=== PATIENT | male | born 1980 | race Caucasian/White ===

== ENCOUNTER 2016-07-09 20:13 | Emergency (ER) | payer SELFPAY ==
[~2016-07-09] VITALS: Ht 175.3 cm; Wt 63.0 kg
[2016-07-09 20:14] VITALS: BP 145/87
== END 2016-07-10 05:30 | disposition left against medical advice (07) ==
LOC: ER 20:14
DX: F10.120 Alcohol abuse with intoxication, uncomplicated (principal); R10.9 Unspecified abdominal pain; F17.200 Nicotine dependence, unspecified, uncomplicated; F12.10 Cannabis abuse, uncomplicated

== ENCOUNTER 2016-07-24 00:32 | Emergency (ER) | payer MEDICAID ==
[~2016-07-24] VITALS: Ht 172.7 cm; Wt 72.0 kg
[2016-07-24 07:30] VITALS: BP 141/77
[2016-07-24 08:24] LABS: *AMPHETAMINES SCREEN URINE PRESUMTIVE POSITIVE (NEGATIVE); *BARBITURATES SCREEN URINE NEGATIVE (NEGATIVE); *BENZODIAZEPINES SCREEN URINE PRESUMTIVE POSITIVE (NEGATIVE); *COCAINE SCREEN URINE NEGATIVE (NEGATIVE); CANNABINOID URINE SCREEN PRESUMTIVE POSITIVE (NEGATIVE); ECSTASY MDMA SCREEN URINE NEGATIVE (NEGATIVE); METHADONE URINE SCREEN NEGATIVE (NEGATIVE); OPIATES URINE SCREEN NEGATIVE (NEGATIVE); PHENCYCLIDINE URINE SCREEN NEGATIVE (NEGATIVE)
== END 2016-07-24 08:28 | disposition left against medical advice (07) ==
LOC: ER 00:32
DX: F10.229 Alcohol dependence with intoxication, unspecified (principal); K70.30 Alcoholic cirrhosis of liver without ascites; R03.0 Elevated blood-pressure reading, without diagnosis of hypertension; G40.909 Epilepsy, unspecified, not intractable, without status epilepticus; F12.10 Cannabis abuse, uncomplicated; Z86.11 Personal history of tuberculosis; Z53.21 Procedure and treatment not carried out due to patient leaving prior to being seen by health care provider
CPT/HCPCS: 36415; 80305; G0482

== ENCOUNTER 2016-10-17 14:23 | Emergency (ER) | payer MEDICAID ==
[~2016-10-17] VITALS: Ht 175.3 cm; Wt 70.0 kg
[2016-10-17 14:24] VITALS: BP 125/78
[2016-10-17] MEDS ORDERED: PHEN100C4 PO (14:25)
== END 2016-10-17 14:56 | disposition left against medical advice (07) ==
LOC: ER 14:31
DX: G40.909 Epilepsy, unspecified, not intractable, without status epilepticus (principal); F10.20 Alcohol dependence, uncomplicated; Z53.21 Procedure and treatment not carried out due to patient leaving prior to being seen by health care provider

== ENCOUNTER 2016-10-17 22:13 | Emergency (ER) | payer MEDICAID ==
[~2016-10-17] VITALS: Ht 177.8 cm; Wt 82.0 kg
[~2016-10-17 22:13] MED LIST: PHEN100C4 PO
[2016-10-18] MEDS ORDERED: DICYCLOMINE 10 MG/5 ML ORAL SYR PO STA (00:10)
[2016-10-18] MEDS ORDERED: ONDANSETRON 4MG ODT PO STA (00:10)
[2016-10-18] MEDS ORDERED: MAGNESIUM/ALUMINUM HYDROXIDE/SIMETHICONE 30ML UDC PO STA (00:10)
[2016-10-18] MEDS ORDERED: VISCOUS LIDOCAINE 2% 15 ML UDC PO STA (00:10)
[2016-10-18 02:05] VITALS: BP 115/65
== END 2016-10-18 02:05 | disposition home or self-care (01) ==
LOC: ER 22:51
DX: R10.32 Left lower quadrant pain (principal); H10.9 Unspecified conjunctivitis; R11.0 Nausea; F10.10 Alcohol abuse, uncomplicated; Y90.8 Blood alcohol level of 240 mg/100 ml or more; G40.909 Epilepsy, unspecified, not intractable, without status epilepticus; F17.210 Nicotine dependence, cigarettes, uncomplicated; F12.90 Cannabis use, unspecified, uncomplicated; S60.512A Abrasion of left hand, initial encounter; X58.XXXA Exposure to other specified factors, initial encounter; Y93.9 Activity, unspecified; Y92.9 Unspecified place or not applicable
CPT/HCPCS: 99284; Q0162

== ENCOUNTER 2016-12-31 09:48 | Emergency (ER) | payer MEDICAID ==
[~2016-12-31] VITALS: Ht 167.6 cm; Wt 63.0 kg
[2016-12-31 11:00] VITALS: BP 121/78
== END 2016-12-31 13:44 | disposition left against medical advice (07) ==
LOC: ER 09:55
DX: Z53.21 Procedure and treatment not carried out due to patient leaving prior to being seen by health care provider (principal)

== ENCOUNTER 2017-01-16 21:58 | Emergency (ER) | payer MEDICAID ==
[~2017-01-16] VITALS: Ht 180.3 cm; Wt 53.0 kg
[2017-01-16 22:10] VITALS: BP 117/68
== END 2017-01-17 01:45 | disposition left against medical advice (07) ==
LOC: ER 21:58
DX: F10.239 Alcohol dependence with withdrawal, unspecified (principal); Z53.21 Procedure and treatment not carried out due to patient leaving prior to being seen by health care provider
CPT/HCPCS: C1893

== ENCOUNTER 2017-04-28 21:44 | Emergency (ER) | payer MEDICAID ==
[~2017-04-28] VITALS: Ht 175.3 cm; Wt 64.0 kg
[2017-04-29] MEDS ORDERED: VISCOUS LIDOCAINE 2% 15 ML UDC PO STA (06:16)
[2017-04-29] MEDS ORDERED: ONDANSETRON 4MG ODT PO STA (06:16)
[2017-04-29] MEDS ORDERED: DICYCLOMINE 10 MG/5 ML ORAL SYR PO STA (06:16)
[2017-04-29] MEDS ORDERED: MAGNESIUM/ALUMINUM HYDROXIDE/SIMETHICONE 30ML UDC PO STA (06:16)
[2017-04-29 06:40] LABS: BASOPHILS % 1.1 % (0.0-2.0); HEMATOCRIT. 28.4 % (42.0-52.0); HEMOGLOBIN. 8.6 g/dL (14.0-18.0); LYMPHOCYTES % 40.5 % (20.0-50.0); MEAN CORPUSCULAR HEMOGLOBIN 20.1 pg (28.0-32.0); MEAN CORPUSCULAR VOLUME 66.1 fL (80.0-94.0); MONOCYTES % 14.1 % (2.0-8.0); NEUTROPHILS % 37.3 % (40.0-76.0); PLATELET 201 x1000/uL (130-400); RED CELL DISTRIBUTION WIDTH 21.3 % (11.6-14.6)
[2017-04-29 06:50] LABS: CHLORIDE 107 mEq/L (98-107)
[2017-04-29 06:52] LABS: PROTHROMBIN TIME 10.4 sec (9.4-11.6)
[2017-04-29 07:07] LABS: CARBON DIOXIDE 27 mEq/L (21-32); ETHANOL BLOOD 276 mg/dL
[2017-04-29 07:21] VITALS: BP 134/88
[2017-04-29 10:56] LABS: PLATELET ESTIMATE NORMAL
== END 2017-04-29 08:06 | disposition home or self-care (01) ==
LOC: ER 21:58
DX: K29.20 Alcoholic gastritis without bleeding (principal); D72.819 Decreased white blood cell count, unspecified; F10.129 Alcohol abuse with intoxication, unspecified; F17.210 Nicotine dependence, cigarettes, uncomplicated; Z59.0 Homelessness
CPT/HCPCS: 36415; 80053; 85025; 85610; 99284; 99406; G0482; J7030; Q0162